=== PATIENT | female | born 1960 | race Caucasian/White ===

== ENCOUNTER → 2016-12-21 | Outpatient (CLI) | payer OTHER ==
[~2016-12-21] MED LIST: HYDR25TA6 PO; MULT-6 PO; NAPROXEN PO; THYR30TA PO
[2016-12-21 14:09] LABS: HEMOGLOBIN 14.6 g/dL (11.7-16.4)
[2016-12-21 14:28] LABS: ASPARTATE AMINO TRANSFERASE 12 U/L (15-37); BLOOD UREA NITROGEN 27 mg/dL (7-18)
== END | disposition home or self-care (01) ==
LOC: STAR 13:16
PROVIDERS: ATTEND Obstetrics & Gynecology Female Pelvic Medicine and Reconstructive Surgery
DX: Z01.818 Encounter for other preprocedural examination (principal); N95.0 Postmenopausal bleeding; R93.8 Abnormal findings on diagnostic imaging of other specified body structures
CPT/HCPCS: 36415; 71020; 80053; 85025; 93005

== ENCOUNTER 2016-12-28 08:15 | Day surgery (SDC) | payer OTHER ==
[~2016-12-28] VITALS: Ht 160 cm; Wt 91.5 kg
[~2016-12-28 08:15] MED LIST changes: +BUPIVACAINE/PF-EPI 0.25% 1:200K ONE; +FLUORESCEIN SODIUM 500 MG/5 ML ONE
[2016-12-28] MEDS ORDERED: FENTANYL PF 250 MCG/5ML ONE (08:41)
[2016-12-28] MEDS ORDERED: LACTATED RINGERS 1,000 ML IV SCH ×2 (08:41→12:34)
[2016-12-28 08:42] VITALS: BP 139/88
[2016-12-28] MEDS ORDERED: SCOPOLAMINE PATCH, 1.5MG PATCH.TD72 TD ONE ×2 (10:28→10:42)
[2016-12-28] MEDS ORDERED: KETOROLAC 30 MG/1 ML ONE (10:49)
[2016-12-28] MEDS ORDERED: ROCURONIUM 10 MG/ML ONE (10:49)
[2016-12-28] MEDS ORDERED: GLYCOPYRROLATE 0.2MG/1ML ONE (10:49)
[2016-12-28] MEDS ORDERED: DEXAMETHASONE 4 MG/ML, 1ML ONE (10:49)
[2016-12-28] MEDS ORDERED: ONDANSETRON 2MG/ML, 2ML ONE (10:49)
[2016-12-28] MEDS ORDERED: NEOSTIGMINE 1 MG/ML, 10ML ONE (10:49)
[2016-12-28] MEDS ORDERED: PROPOFOL 10 MG/ML, 20ML ONE (10:49)
[2016-12-28] MEDS ORDERED: CEFAZOLIN 1,000 MG ONE (10:49)
[2016-12-28] MEDS ORDERED: hydrALAzine 20 MG/ML, 1ML IV PRN (12:00)
[2016-12-28] MEDS ORDERED: HYDROcodone/APAP 7.5-325MG/15ML UDC PO PRN (12:00)
[2016-12-28] MEDS ORDERED: LABETALOL 5MG/ML, 20ML IV PRN (12:00)
[2016-12-28] MEDS ORDERED: ONDANSETRON 2MG/ML, 2ML IVPush PRN (12:00)
[2016-12-28] MEDS ORDERED: PROMETHAZINE 25 MG/ML, 1ML IV PRN (12:00)
[2016-12-28] MEDS ORDERED: OXYcodone 5 MG/5 ML ORAL.SOL UDC PO PRN (12:00)
[2016-12-28] MEDS ORDERED: ACETAMINOPHEN 325 MG TABLET PO PRN (12:00)
[2016-12-28] MEDS ORDERED: FENTANYL PF 100 MCG/2ML ONE (12:30)
[2016-12-28] MEDS ORDERED: OXYcodone 5 MG/5 ML ORAL.SOL UDC ONE (12:30)
[2016-12-28] MEDS: FENTANYL PF 100 MCG/2ML IV PRN ×2 (12:32→12:40)
[2016-12-28] MEDS ORDERED: ACETAMINOPHEN 325 MG TABLET ONE (12:41)
[2016-12-28] MEDS ORDERED: HYDROmorphone 2 MG/ML, 1ML ONE (12:49)
[2016-12-28] MEDS: HYDROmorphone 1 MG/ML, 1ML IV PRN ×2 (12:51→12:56)
[2016-12-28] MEDS ORDERED: PROMETHAZINE 25 MG/ML, 1ML IVPush ONE (13:00)
[2016-12-28] MEDS ORDERED: IBUPROFEN 600 MG TABLET PO PRN (13:00)
[2016-12-28] MEDS ORDERED: OXYcodone/APAP 5/325MG TABLET PO PRN (13:00)
[2016-12-28] MEDS ORDERED: PROMETHAZINE 25 MG SUPP PR ONE (13:00)
== END 2016-12-28 16:15 | disposition home or self-care (01) ==
LOC: OUT 08:15
PROVIDERS: ATTEND Obstetrics & Gynecology Female Pelvic Medicine and Reconstructive Surgery
DX: N81.4 Uterovaginal prolapse, unspecified (principal); N83.8 Other noninflammatory disorders of ovary, fallopian tube and broad ligament; I10 Essential (primary) hypertension; E03.9 Hypothyroidism, unspecified; J45.909 Unspecified asthma, uncomplicated; M19.90 Unspecified osteoarthritis, unspecified site
CPT/HCPCS: 58571; 88307; J0690; J1100; J1170; J1885; J2405; J2704; J2710; J3010; J7120; S2900; J3490